=== PATIENT | male | born 1945 | race Caucasian/White ===

== ENCOUNTER 2017-01-05 12:43 | Inpatient (IN) | payer MEDICARE ==
[~2017-01-05] VITALS: Ht 170.2 cm; Wt 63.8 kg
[2017-01-05] MEDS ORDERED: BUSP10TA PO (13:05)
[2017-01-05] MEDS ORDERED: MULT-658 PO (13:05)
[2017-01-05] MEDS ORDERED: METO25TA35 PO (13:05)
[2017-01-05 13:26] LABS: HEMOGLOBIN 14.6 g/dL (13.7-18.0)
[2017-01-05] MEDS ORDERED: THIAMINE 100MG TABLET ONE (13:27)
[2017-01-05] MEDS ORDERED: PLEASE ENTER HEIGHT AND WEIGHT MC SCH (13:30)
[2017-01-05] MEDS ORDERED: THIAMINE 100MG TABLET PO ONE (13:30)
[2017-01-05] MEDS ORDERED: FOLIC ACID 1 MG TABLET PO ONE (13:30)
[2017-01-05] MEDS ORDERED: MAGNESIUM CHLORIDE 64 MG TABLET.DR PO SCH (13:30)
[2017-01-05 13:55] LABS: ASPARTATE AMINO TRANSFERASE 122 U/L (15-37); BLOOD UREA NITROGEN 6 mg/dL (7-18)
[2017-01-05 14:10] LABS: IS PT STATUS REG ER OR PRE ER? YES
[2017-01-05] MEDS ORDERED: SODIUM CHLORIDE 0.9% 1,000 ML IV ONE (14:30)
[2017-01-05] MEDS ORDERED: MAGNESIUM CHLORIDE 64 MG TABLET.DR PO ONE (14:32)
[2017-01-05] MEDS ORDERED: CEFTRIAXONE PMX 1GM/50ML 50 ML ONE (14:52)
[2017-01-05] MEDS ORDERED: VANCOMYCIN PMX 1GM/200ML 200 ML IV ONE (15:00)
[2017-01-05] MEDS ORDERED: CEFTRIAXONE PMX 1GM/50ML 50 ML IVPB ONE (15:00)
[2017-01-05] MEDS ORDERED: VANCOMYCIN PER PHARMACY IV ONE (15:00)
[2017-01-05] MEDS: SODIUM CHLORIDE 0.9% 1,000 ML IV SCH (15:23)
[2017-01-05] MEDS ORDERED: MORPHINE SULFATE 4 MG/ML, 1ML IVPush PRN (15:30)
[2017-01-05] MEDS ORDERED: CHLORDIAZEPOXIDE 10 MG CAPSULE PO PRN (15:30)
[2017-01-05] MEDS ORDERED: LORazepam 2 MG/ML, 1ML IV PRN ×3 (15:30)
[2017-01-05] MEDS ORDERED: LORazepam 0.5MG TABLET PO PRN (15:30)
[2017-01-05] MEDS ORDERED: LORazepam 1MG TABLET PO PRN ×3 (15:30)
[2017-01-05] MEDS ORDERED: VANCOMYCIN PER PHARMACY MC PRN (15:30)
[2017-01-05] MEDS ORDERED: ONDANSETRON 2MG/ML, 2ML IVP PRN (15:30)
[2017-01-05] MEDS ORDERED: HYDROcodone/APAP 5/325 TABLET PO PRN (15:30)
[2017-01-05] MEDS ORDERED: PIPERACILLIN/TAZO/PMX 3.375GM 50 ML IV SCH (17:00)
[2017-01-05] MEDS ORDERED: PHARMACOKINETIC CONSULTATION MC ONE (17:00)
[2017-01-05] MEDS ORDERED: PHARMACOKINETIC MONITORING MC PRN (17:00)
[2017-01-05] MEDS: PIPERACILLIN/TAZO/PMX 3.375GM 50 ML IV SCH ×2 (17:00→23:55)
[2017-01-05] MEDS: GUAIFENESIN 200 MG TABLET PO SCH ×2 (17:52→20:31)
[2017-01-05] MEDS: NICOTINE 21 MG/24 HR PATCH.TD24 TD SCH (17:56)
[2017-01-05] MEDS: ENOXAPARIN 40 MG/0.4 ML SQ SCH (17:56)
[2017-01-05 18:14] VITALS: BP 122/83
[2017-01-05 18:41] LABS: BLOOD UREA NITROGEN 8 mg/dL (7-18)
[2017-01-05 20:00] VITALS: BP 116/75
[2017-01-05] MEDS: FAMOTIDINE 20 MG TABLET PO SCH (20:31)
[2017-01-05] MEDS: BUSPIRONE 10 MG TABLET PO SCH (20:31)
[2017-01-05] MEDS: VANCOMYCIN 1,100 MG in SODIUM CHLORIDE 0.9% 250 ML IV SCH (20:31)
[2017-01-05] MEDS: METOPROLOL TARTRATE 25 MG TABLET PO SCH (20:35)
[2017-01-06 02:00] VITALS: BP 111/73
[2017-01-06] MEDS: SODIUM CHLORIDE 0.9% 1,000 ML IV SCH (05:09)
[2017-01-06] MEDS: GUAIFENESIN 200 MG TABLET PO SCH ×4 (05:10→21:14)
[2017-01-06] MEDS: PIPERACILLIN/TAZO/PMX 3.375GM 50 ML IV SCH ×3 (05:10→17:45)
[2017-01-06 06:15] LABS: HEMOGLOBIN 14.2 g/dL (13.7-18.0)
[2017-01-06 06:24] LABS: BLOOD UREA NITROGEN 6 mg/dL (7-18)
[2017-01-06 06:40] VITALS: BP 117/78
[2017-01-06] MEDS ORDERED: MAGNESIUM SULFATE PMX 2GM/50ML 50 ML IV ONE (07:30)
[2017-01-06] MEDS: THIAMINE 100MG TABLET PO SCH (09:07)
[2017-01-06] MEDS: FAMOTIDINE 20 MG TABLET PO SCH ×2 (09:07→21:14)
[2017-01-06] MEDS: MULTIVITAMIN 1 TABLET PO SCH (09:07)
[2017-01-06] MEDS: BUSPIRONE 10 MG TABLET PO SCH ×2 (09:07→21:13)
[2017-01-06] MEDS: FOLIC ACID 1 MG TABLET PO SCH (09:07)
[2017-01-06] MEDS: METOPROLOL TARTRATE 25 MG TABLET PO SCH ×2 (09:08→21:13)
[2017-01-06 12:38] VITALS: BP 110/72
[2017-01-06 17:23] LABS: BLOOD UREA NITROGEN 8 mg/dL (7-18)
[2017-01-06] MEDS: ENOXAPARIN 40 MG/0.4 ML SQ SCH (17:45)
[2017-01-06] MEDS: NICOTINE 21 MG/24 HR PATCH.TD24 TD SCH (18:00)
[2017-01-06] MEDS: VANCOMYCIN 1,100 MG in SODIUM CHLORIDE 0.9% 250 ML IV SCH (21:13)
[2017-01-06 21:27] VITALS: BP 104/60
[2017-01-07] MEDS: PIPERACILLIN/TAZO/PMX 3.375GM 50 ML IV SCH ×2 (00:38→06:03)
[2017-01-07 02:45] VITALS: BP 123/71
[2017-01-07] MEDS: GUAIFENESIN 200 MG TABLET PO SCH ×4 (06:00→20:54)
[2017-01-07 06:36] LABS: HEMOGLOBIN 13.5 g/dL (13.7-18.0)
[2017-01-07 06:40] VITALS: BP 121/70
[2017-01-07] MEDS ORDERED: POTASSIUM CHLORIDE 20 MEQ TAB.ER.PRT PO ONE (07:30)
[2017-01-07] MEDS: METOPROLOL TARTRATE 25 MG TABLET PO SCH ×2 (08:19→20:56)
[2017-01-07] MEDS: BUSPIRONE 10 MG TABLET PO SCH ×2 (08:19→20:55)
[2017-01-07] MEDS: AMOXICILLIN/CLAV 500-125MG TABLET PO SCH ×2 (08:19→16:32)
[2017-01-07] MEDS: THIAMINE 100MG TABLET PO SCH (08:19)
[2017-01-07] MEDS: MULTIVITAMIN 1 TABLET PO SCH (08:19)
[2017-01-07] MEDS: FOLIC ACID 1 MG TABLET PO SCH (08:19)
[2017-01-07] MEDS: FAMOTIDINE 20 MG TABLET PO SCH ×2 (08:19→20:54)
[2017-01-07 12:50] VITALS: BP 119/58
[2017-01-07 16:58] LABS: BLOOD UREA NITROGEN 8 mg/dL (7-18)
[2017-01-07] MEDS: NICOTINE 21 MG/24 HR PATCH.TD24 TD SCH (18:00)
[2017-01-07] MEDS: ENOXAPARIN 40 MG/0.4 ML SQ SCH (18:00)
[2017-01-07 19:55] VITALS: BP 115/66
[2017-01-07 21:04] VITALS: BP 124/73
[2017-01-08] MEDS: AMOXICILLIN/CLAV 500-125MG TABLET PO SCH ×4 (00:14→22:43)
[2017-01-08 02:22] VITALS: BP 147/77
[2017-01-08] MEDS: GUAIFENESIN 200 MG TABLET PO SCH ×4 (05:54→21:00)
[2017-01-08 06:32] VITALS: BP 143/83
[2017-01-08] MEDS: FAMOTIDINE 20 MG TABLET PO SCH ×2 (07:55→22:43)
[2017-01-08] MEDS: FOLIC ACID 1 MG TABLET PO SCH (07:55)
[2017-01-08] MEDS: THIAMINE 100MG TABLET PO SCH (07:55)
[2017-01-08] MEDS: MULTIVITAMIN 1 TABLET PO SCH (07:55)
[2017-01-08] MEDS: METOPROLOL TARTRATE 25 MG TABLET PO SCH ×2 (07:55→22:43)
[2017-01-08] MEDS: BUSPIRONE 10 MG TABLET PO SCH ×2 (07:55→22:43)
[2017-01-08 12:40] VITALS: BP 132/77
[2017-01-08] MEDS: ENOXAPARIN 40 MG/0.4 ML SQ SCH (17:10)
[2017-01-08] MEDS: NICOTINE 21 MG/24 HR PATCH.TD24 TD SCH (17:11)
[2017-01-08 20:10] VITALS: BP 123/71
[2017-01-08 22:50] VITALS: BP 133/80
[2017-01-09 02:17] VITALS: BP 155/79
[2017-01-09 05:43] LABS: HEMOGLOBIN 13.9 g/dL (13.7-18.0)
[2017-01-09] MEDS: GUAIFENESIN 200 MG TABLET PO SCH ×4 (05:43→21:00)
[2017-01-09 05:49] LABS: BLOOD UREA NITROGEN 8 mg/dL (7-18)
[2017-01-09 07:10] VITALS: BP 154/75
[2017-01-09] MEDS: BUSPIRONE 10 MG TABLET PO SCH ×2 (08:54→22:07)
[2017-01-09] MEDS: MULTIVITAMIN 1 TABLET PO SCH (08:55)
[2017-01-09] MEDS: METOPROLOL TARTRATE 25 MG TABLET PO SCH ×2 (08:55→22:15)
[2017-01-09] MEDS: FOLIC ACID 1 MG TABLET PO SCH (08:55)
[2017-01-09] MEDS: AMOXICILLIN/CLAV 500-125MG TABLET PO SCH ×3 (08:55→23:31)
[2017-01-09] MEDS: FAMOTIDINE 20 MG TABLET PO SCH ×2 (08:55→22:07)
[2017-01-09] MEDS: THIAMINE 100MG TABLET PO SCH (08:56)
[2017-01-09 12:51] VITALS: BP 137/85
[2017-01-09] MEDS: NICOTINE 21 MG/24 HR PATCH.TD24 TD SCH (18:00)
[2017-01-09] MEDS: ENOXAPARIN 40 MG/0.4 ML SQ SCH (18:00)
[2017-01-09 19:31] VITALS: BP 143/81
[2017-01-10 03:14] VITALS: BP 155/84
[2017-01-10] MEDS: GUAIFENESIN 200 MG TABLET PO SCH ×4 (05:23→22:23)
[2017-01-10 07:04] VITALS: BP 147/83
[2017-01-10] MEDS: THIAMINE 100MG TABLET PO SCH (08:23)
[2017-01-10] MEDS: FAMOTIDINE 20 MG TABLET PO SCH ×2 (08:24→22:23)
[2017-01-10] MEDS: FOLIC ACID 1 MG TABLET PO SCH (08:24)
[2017-01-10] MEDS: METOPROLOL TARTRATE 25 MG TABLET PO SCH ×2 (08:25→22:23)
[2017-01-10] MEDS: AMOXICILLIN/CLAV 500-125MG TABLET PO SCH ×2 (08:25→15:30)
[2017-01-10] MEDS: MULTIVITAMIN 1 TABLET PO SCH (08:25)
[2017-01-10] MEDS: BUSPIRONE 10 MG TABLET PO SCH ×2 (08:25→22:23)
[2017-01-10] MEDS ORDERED: AMOX-367 PO (13:19)
[2017-01-10 13:55] VITALS: BP 144/82
[2017-01-10] MEDS: NICOTINE 21 MG/24 HR PATCH.TD24 TD SCH (17:50)
[2017-01-10] MEDS: ENOXAPARIN 40 MG/0.4 ML SQ SCH (17:50)
[2017-01-10 18:54] VITALS: BP 164/92
[2017-01-11] MEDS: AMOXICILLIN/CLAV 500-125MG TABLET PO SCH ×2 (00:33→07:42)
[2017-01-11 02:12] VITALS: BP 154/91
[2017-01-11] MEDS: GUAIFENESIN 200 MG TABLET PO SCH ×2 (06:00→11:00)
[2017-01-11] MEDS: MULTIVITAMIN 1 TABLET PO SCH (07:42)
[2017-01-11] MEDS: METOPROLOL TARTRATE 25 MG TABLET PO SCH (07:42)
[2017-01-11] MEDS: THIAMINE 100MG TABLET PO SCH (07:42)
[2017-01-11] MEDS: FAMOTIDINE 20 MG TABLET PO SCH (07:42)
[2017-01-11] MEDS: BUSPIRONE 10 MG TABLET PO SCH (07:42)
[2017-01-11] MEDS: FOLIC ACID 1 MG TABLET PO SCH (07:42)
[2017-01-11 08:25] VITALS: BP 140/91
[2017-01-11 13:52] VITALS: BP 123/79
== END 2017-01-11 14:45 | disposition home or self-care (01) | DRG 177 ==
LOC: ED 13:52 → EDIP 15:23 → 4EST 16:21
PROVIDERS: ADMIT Internal Medicine; ATTEND Internal Medicine
PROC: HZ34ZZZ Individual Counseling for Substance Abuse Treatment, Interpersonal (ICD-10-PCS; principal; 2017-01-05)
DX: J69.0 Pneumonitis due to inhalation of food and vomit (principal); E43 Unspecified severe protein-calorie malnutrition; E87.1 Hypo-osmolality and hyponatremia; M62.82 Rhabdomyolysis; J44.0 Chronic obstructive pulmonary disease with (acute) lower respiratory infection; L03.113 Cellulitis of right upper limb; I10 Essential (primary) hypertension; E83.42 Hypomagnesemia; W18.30XA Fall on same level, unspecified, initial encounter; F17.200 Nicotine dependence, unspecified, uncomplicated; W18.39XA Other fall on same level, initial encounter; R09.02 Hypoxemia; S50.811A Abrasion of right forearm, initial encounter; Z59.0 Homelessness; Z82.49 Family history of ischemic heart disease and other diseases of the circulatory system; Z68.22 Body mass index [BMI] 22.0-22.9, adult; Y93.89 Activity, other specified; Y92.098 Other place in other non-institutional residence as the place of occurrence of the external cause; F10.229 Alcohol dependence with intoxication, unspecified; Z71.41 Alcohol abuse counseling and surveillance of alcoholic
CPT/HCPCS: 36415; 71010; 80048; 80053; 82550; 83735; 84484; 85025; 87040; 93005; 96365; J0696; J1650; J2543; J3370; J3475; J7030; J7050